=== PATIENT | female | born 2000 | race Caucasian/White ===

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

== ENCOUNTER → 2022-04-09 | Outpatient (CLI) | payer BC, OTHER ==
[~2022-04-09] MED LIST changes: -SIME180C PO; +SIME180C25 PO
== END ==
LOC: M RAD 15:06
PROVIDERS: ATTEND Physician Assistant
DX: S40.012A Contusion of left shoulder, initial encounter (principal)

== ENCOUNTER → 2023-11-29 | Outpatient (CLI) | payer BC, OTHER ==
[2023-11-29 17:29] LABS: HEMATOCRIT 33.9 % (36.0-47.0); HEMOGLOBIN 11.3 g/dl (12.0-15.5); MEAN CORPUSCULAR HEMOGLOBIN 32.1 pg (27.0-33.0); MEAN CORPUSCULAR HGB CONC 33.3 g/dl (32.0-36.5); MEAN CORPUSCULAR VOLUME 96.3 fl (80.0-96.0); PLATELET COUNT, AUTOMATED 327 10^3/uL (150-450); RED BLOOD COUNT 3.52 10^6/uL (4.00-5.40)
[2023-11-29 18:04] LABS: HIV 1&2 SCREEN NEGATIVE (NEGATIVE)
[2023-11-29 18:12] LABS: HEPATITIS C VIRUS ABY INDEX < 0.02 INDEX (<0.8)
[2023-11-29 18:30] LABS: CHLAMYDIA DNA AMPLIFICATION NEGATIVE (NEGATIVE); GC DNA AMPLIFICATION NEGATIVE (NEGATIVE)
== END ==
LOC: M PLALAB 14:51
PROVIDERS: ATTEND Advanced Practice Midwife
DX: Z34.01 Encounter for supervision of normal first pregnancy, first trimester (principal)

== ENCOUNTER → 2024-02-09 | Outpatient (CLI) | payer BC | LOC: M WHC 13:55 | PROVIDERS: ATTEND Obstetrics & Gynecology | DX: Z34.92 Encounter for supervision of normal pregnancy, unspecified, second trimester (principal); Z3A.20 20 weeks gestation of pregnancy ==

== ENCOUNTER → 2024-02-20 | Outpatient (REF) | payer BC ==
[2024-02-20 17:07] LABS: GC DNA AMPLIFICATION NEGATIVE (NEGATIVE)
== END ==
LOC: M PLALAB 13:40
PROVIDERS: ATTEND Advanced Practice Midwife
DX: Z34.02 Encounter for supervision of normal first pregnancy, second trimester (principal)

== ENCOUNTER → 2024-02-28 | Outpatient (CLI) | payer BC | LOC: M RAD 15:35 | PROVIDERS: ATTEND Advanced Practice Midwife | DX: Z34.02 Encounter for supervision of normal first pregnancy, second trimester (principal) ==

== ENCOUNTER → 2024-03-19 | Outpatient (CLI) | payer BC ==
[2024-03-19 14:08] LABS: HEMATOCRIT 31.8 % (36.0-47.0); HEMOGLOBIN 10.5 g/dl (12.0-15.5); MEAN CORPUSCULAR HEMOGLOBIN 32.6 pg (27.0-33.0); MEAN CORPUSCULAR VOLUME 98.8 fl (80.0-96.0); PLATELET COUNT, AUTOMATED 318 10^3/uL (150-450); RED BLOOD COUNT 3.22 10^6/uL (4.00-5.40); WHITE BLOOD COUNT 11.3 10^3/uL (4.0-10.0)
== END ==
LOC: M PLALAB 10:26
PROVIDERS: ATTEND Advanced Practice Midwife
DX: Z34.02 Encounter for supervision of normal first pregnancy, second trimester (principal)

== ENCOUNTER → 2024-05-28 | Outpatient (REF) | payer BC | LOC: M SFHCWAGY 10:34 | PROVIDERS: ATTEND Obstetrics & Gynecology | DX: Z34.93 Encounter for supervision of normal pregnancy, unspecified, third trimester (principal) ==

== ENCOUNTER → 2024-06-06 | Outpatient (CLI) | payer BC ==
[2024-06-06 11:37] LABS: HEMATOCRIT 30.3 % (36.0-47.0); HEMOGLOBIN 9.7 g/dl (12.0-15.5); MEAN CORPUSCULAR HEMOGLOBIN 31.2 pg (27.0-33.0); MEAN CORPUSCULAR VOLUME 97.4 fl (80.0-96.0); PLATELET COUNT, AUTOMATED 308 10^3/uL (150-450); RED BLOOD COUNT 3.11 10^6/uL (4.00-5.40); WHITE BLOOD COUNT 12.5 10^3/uL (4.0-10.0)
[2024-06-06 11:48] LABS: ALBUMIN 2.9 G/DL (3.2-5.2); ALKALINE PHOSPHATASE 162 U/L (46-116); ALT/SGPT 15 U/L (7.0-40); AST/SGOT 11 U/L (<34); BILIRUBIN,DIRECT < 0.1 MG/DL (<0.4); BILIRUBIN,TOTAL 0.4 MG/DL (0.3-1.2)
== END ==
LOC: M PLALAB 08:11
PROVIDERS: ATTEND Advanced Practice Midwife
DX: R21 Rash and other nonspecific skin eruption (principal); L29.9 Pruritus, unspecified

== ENCOUNTER 2024-06-20 09:52 | Inpatient (IN) | payer BC ==
[~2024-06-20] VITALS: Ht 170.2 cm; Wt 90.6 kg
[2024-06-20] VITALS (22 sets, daily range): BP systolic 129–167; BP diastolic 75–106; O2SAT 98
[2024-06-20] MEDS ORDERED: HOME MED LIST COMPLETE! XX SCH (10:15)
[2024-06-20] MEDS ORDERED: PRENTAB9 PO (10:15)
[2024-06-20 11:24] LABS: HEMATOCRIT 28.5 % (36.0-47.0); HEMOGLOBIN 9.2 g/dl (12.0-15.5); MEAN CORPUSCULAR HEMOGLOBIN 30.5 pg (27.0-33.0); MEAN CORPUSCULAR HGB CONC 32.3 g/dl (32.0-36.5); MEAN CORPUSCULAR VOLUME 94.4 fl (80.0-96.0); PLATELET COUNT, AUTOMATED 317 10^3/uL (150-450); RED BLOOD COUNT 3.02 10^6/uL (4.00-5.40)
[2024-06-20] MEDS ORDERED: OXYTOCIN DRIP 30 UNITS in IV 1 EA IV PRN (12:00)
[2024-06-20] MEDS ORDERED: TRANEXAMIC ACID INJection 1,000 MG in NS 100 ML IV PRN (12:00)
[2024-06-20] MEDS ORDERED: LACTATED RINGER'S 1000 ML IV PRN (12:00)
[2024-06-20] MEDS ORDERED: CARBOPROST TROMETHAMINE 250 MCG/ML AMP IM PRN (12:00)
[2024-06-20] MEDS ORDERED: METHYLERGONOVINE MALEATE 0.2MG/ML 1ML VIAL IM PRN (12:00)
[2024-06-20] MEDS: LR 1,000 ML IV SCH (15:04)
[2024-06-20] MEDS: OXYTOCIN DRIP 30 UNITS in IV 1 EA IV SCH (15:04)
[2024-06-20] MEDS: PROMETHAZINE 25MG/ML 1ML VIAL IV ONE (17:51)
[2024-06-20] MEDS: BUTORPHANOL 2 MG/ML 1ML VIAL IV ONE (17:51)
[2024-06-20] MEDS ORDERED: IBUPROFEN 600MG TAB PO PRN (19:35)
[2024-06-20] MEDS ORDERED: METHYLERGONOVINE MALEATE 0.2 MG TAB PO PRN (19:35)
[2024-06-20] MEDS ORDERED: DIBUCAINE 1% OINTMENT 30GM TOP PRN (19:35)
[2024-06-20] MEDS ORDERED: RHO(D) IMMUNE GLOBULIN/MALTOSE 500MCG(2500IU)/2.2ML VIAL (WINRHO) IM SCH (19:35)
[2024-06-21 06:00] VITALS: BP 116/62; O2SAT 97
[2024-06-21 06:23] LABS: HEMATOCRIT 26.9 % (36.0-47.0); HEMOGLOBIN 8.7 g/dl (12.0-15.5); MEAN CORPUSCULAR HEMOGLOBIN 30.7 pg (27.0-33.0); MEAN CORPUSCULAR HGB CONC 32.3 g/dl (32.0-36.5); MEAN CORPUSCULAR VOLUME 95.1 fl (80.0-96.0); PLATELET COUNT, AUTOMATED 295 10^3/uL (150-450); RED BLOOD COUNT 2.83 10^6/uL (4.00-5.40); WHITE BLOOD COUNT 17.6 10^3/uL (4.0-10.0)
[2024-06-21] MEDS: ACETAMINOPHEN 500 MG TAB PO PRN (07:43)
[2024-06-21] MEDS: PRENATAL VITAMINS CHEWABLE TABLET PO SCH (07:43)
[2024-06-21] MEDS: DOCUSATE SODIUM 100MG CAPSULE PO PRN (14:30)
[2024-06-22] MEDS ORDERED: MEASLES,MUMPS,RUBELLA VACCINE INJ (MMR-II) SC.IMMUN ONE (09:00)
== END 2024-06-21 14:35 | disposition home or self-care (01) | DRG 560 ==
LOC: M LDO 09:52 → M LDI 10:30 → M OBS 21:25
PROVIDERS: ADMIT Obstetrics & Gynecology; ATTEND Obstetrics & Gynecology
PROC: 10E0XZZ Delivery of Products of Conception, External Approach (ICD-10-PCS; principal; 2024-06-20)
PROC: 0HQ9XZZ Repair Perineum Skin, External Approach (ICD-10-PCS; 2024-06-20)
DX: O42.02 Full-term premature rupture of membranes, onset of labor within 24 hours of rupture (principal); O70.0 First degree perineal laceration during delivery; Z37.0 Single live birth; Z3A.39 39 weeks gestation of pregnancy; Z88.0 Allergy status to penicillin

== ENCOUNTER 2025-01-03 12:00 | Emergency (ER) | payer BC ==
[~2025-01-03] VITALS: Ht 170.2 cm; Wt 72.6 kg
[~2025-01-03 12:00] MED LIST changes: +PRENTAB9 PO; -SIME180C25 PO; +SIME1CAP4 PO
[2025-01-03] MEDS ORDERED: ONDA-282 PO (15:02)
[2025-01-03] MEDS: ONDANSETRON 4MG TAB PO ONE (15:04)
[2025-01-03] MEDS: ACETAMINOPHEN 500 MG TAB PO ONE (15:04)
[2025-01-03 15:14] VITALS: BP 137/61; TEMP 97.4; O2SAT 97
== END 2025-01-03 15:15 | disposition home or self-care (01) ==
LOC: M ED 12:00
DX: S09.90XA Unspecified injury of head, initial encounter (principal); M54.2 Cervicalgia; W01.198A Fall on same level from slipping, tripping and stumbling with subsequent striking against other object, initial encounter; J45.909 Unspecified asthma, uncomplicated; F41.9 Anxiety disorder, unspecified; Y92.018 Other place in single-family (private) house as the place of occurrence of the external cause; Y93.89 Activity, other specified; Y99.9 Unspecified external cause status; Z79.83 Long term (current) use of bisphosphonates; Z79.899 Other long term (current) drug therapy; Z88.0 Allergy status to penicillin; Z88.1 Allergy status to other antibiotic agents; Z88.2 Allergy status to sulfonamides

== ENCOUNTER → 2025-01-07 | Outpatient (REF) | payer OTHER ==
[~2025-01-07] MED LIST changes: +ONDA-282 PO
[2025-01-14 13:57] LABS: HPV APTIMA Not Detected (Not Detected)
== END ==
LOC: M SFHCWAGY 16:09
PROVIDERS: ATTEND Obstetrics & Gynecology
DX: Z01.419 Encounter for gynecological examination (general) (routine) without abnormal findings (principal); R87.610 Atypical squamous cells of undetermined significance on cytologic smear of cervix (ASC-US)
CPT/HCPCS: 87624; G0123

== ENCOUNTER → 2025-01-07 | Outpatient (REF) | payer BC | LOC: M PLALAB 15:11 | PROVIDERS: ATTEND Obstetrics & Gynecology | DX: Z12.4 Encounter for screening for malignant neoplasm of cervix (principal); Z53.9 Procedure and treatment not carried out, unspecified reason ==

== ENCOUNTER → 2025-01-23 | Outpatient (CLI) | payer OTHER | LOC: M WUC 10:40 | PROVIDERS: ATTEND Nurse Practitioner Family | DX: R05.9 Cough, unspecified (principal) ==

== ENCOUNTER → 2025-09-12 | Outpatient (CLI) | payer BC, OTHER ==
[~2025-09-12] MED LIST changes: -IBUP-1022 OR; +IBUP600T42 OR
[2025-09-12 14:02] LABS: PLATELET COUNT, AUTOMATED 320 10^3/uL (150-450)
[2025-09-12 14:40] LABS: HIV 1&2 SCREEN NEGATIVE (NEGATIVE)
[2025-09-12 14:48] LABS: HEPATITIS C VIRUS ABY INDEX < 0.02 INDEX (<0.8)
[2025-09-12 15:07] LABS: Trichomonas vaginalis (AMP) NOT DETECTED (NEGATIVE)
[2025-09-12 15:31] LABS: GC DNA AMPLIFICATION NEGATIVE (NEGATIVE)
== END ==
LOC: M PLALAB 09:56
PROVIDERS: ATTEND Obstetrics & Gynecology
DX: O26.891 Other specified pregnancy related conditions, first trimester (principal); Z3A.10 10 weeks gestation of pregnancy; Z82.79 Family history of other congenital malformations, deformations and chromosomal abnormalities; Z13.79 Encounter for other screening for genetic and chromosomal anomalies; M35.9 Systemic involvement of connective tissue, unspecified

== ENCOUNTER 2025-10-07 14:57 | Emergency (ER) | payer OTHER ==
[~2025-10-07] VITALS: Ht 170.2 cm; Wt 74.0 kg
[2025-10-07 15:37] LABS: BASO # 0.0 10^3/uL (0.0-0.2); BASO % 0.2 % (0.0-1.0); EOS # 0.1 10^3/uL (0.0-0.5); EOS % 0.7 % (0.0-3.0); LYMPH # 1.4 10^3/uL (1.5-5.0); LYMPH % 14.6 % (24.0-44.0); MONO # 0.6 10^3/uL (0.0-0.8); MONO % 6.3 % (2.0-8.0); NEUTROPHILS # 7.5 10^3/uL (1.5-8.5); NEUTROPHILS % 77.9 % (36.0-66.0); PLATELET COUNT, AUTOMATED 343 10^3/uL (150-450)
[2025-10-07 16:10] LABS: ALT/SGPT 10 U/L (7.0-40); AST/SGOT 11 U/L (<34); CALCIUM LEVEL 8.7 MG/DL (8.5-10.1); CARBON DIOXIDE LEVEL 26 MMOL/L (20-31); CHLORIDE LEVEL 106 MMOL/L (98-107); CREATININE FOR GFR 0.52 MG/DL (0.55-1.30); GLOMERULAR FILTRATION RATE > 90.0 (>60); POTASSIUM SERUM 3.7 MMOL/L (3.5-5.1); SODIUM LEVEL 138 MMOL/L (136-145)
[2025-10-07 16:18] LABS: KETONE, URINE AUTO RFX NEGATIVE (NEGATIVE); LEUKOCYTE ESTERASE UR AUTO RFX NEGATIVE (NEGATIVE); NITRITE, URINE AUTO RFX NEGATIVE (NEGATIVE); RBC, URINE AUTO RFX 1 /HPF (0-3); SQUAM EPITHELIAL CELL UR AURFX 1 /HPF (0-6); WBC, URINE AUTO RFX 1 /HPF (0-3)
[2025-10-07] MEDS: METOCLOPRAMIDE 10 MG TAB PO ONE ×2 (18:35→20:11)
[2025-10-07] MEDS: NS (Normal Saline) 0.9% 1,000 ML IV ONE (18:35)
[2025-10-07 19:30] VITALS: BP 116/62; TEMP 96.6; O2SAT 100
[2025-10-07] MEDS ORDERED: DIFI200T PO (19:37)
[2025-10-07] MEDS ORDERED: REGL10TA6 PO (19:37)
[2025-10-07] MEDS: NS 500 ML IV ONE (19:42)
[2025-10-07] MEDS: FIDAXOMICIN 200 MG TAB PO SCH (20:09)
== END 2025-10-07 20:37 | disposition home or self-care (01) ==
LOC: M ED 14:57
DX: O99.612 Diseases of the digestive system complicating pregnancy, second trimester (principal); A04.72 Enterocolitis due to Clostridium difficile, not specified as recurrent; O26.892 Other specified pregnancy related conditions, second trimester; A04.4 Other intestinal Escherichia coli infections; Z3A.14 14 weeks gestation of pregnancy; Z88.0 Allergy status to penicillin; Z88.1 Allergy status to other antibiotic agents; Z88.2 Allergy status to sulfonamides; Z79.899 Other long term (current) drug therapy